=== PATIENT | male | born 1990 ===

== ENCOUNTER 2018-04-12 13:17 | Emergency (ER) | payer OTHER, SELFPAY ==
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
[2018-04-12 15:54] VITALS: BP 114/74; PULSE 68; RESP 14; TEMP 98; O2SAT 98
== END 2018-04-12 15:53 | disposition home or self-care (01) ==
LOC: H.ER 13:17
DX: S49.92XA Unspecified injury of left shoulder and upper arm, initial encounter (principal); Y93.55 Activity, bike riding; Y92.410 Unspecified street and highway as the place of occurrence of the external cause; K64.9 Unspecified hemorrhoids